=== PATIENT | male | born 1995 | race Caucasian/White ===

== ENCOUNTER 2019-01-15 15:24 | Inpatient (IN) | payer OTHER ==
[~2019-01-15] VITALS: Ht 172.7 cm; Wt 101.6 kg
[2019-01-15 15:36] VITALS: BP 152/94
[2019-01-15] MEDS ORDERED: ONDANSETRON HCL4 M2 PO (15:38)
[2019-01-15] MEDS ORDERED: NAPROSYN500 MG PO (15:38)
[2019-01-15 15:41] LABS: URINE BILIRUBIN NEGATIVE (Negative); URINE BLOOD 3+ (Negative); URINE CLARITY CLEAR; URINE COLOR YELLOW; URINE GLUCOSE-RANDOM NEGATIVE (Negative); URINE KETONES NEGATIVE (Negative); URINE LEUKOCYTES-REFLEX NEGATIVE (Negative); URINE NITRITE-REFLEX NEGATIVE (Negative); URINE PROTEIN TRACE (Negative); URINE SPECIFIC GRAVITY 1.025 (1.005-1.030); URINE UROBILINOGEN 0.2 E.U./dl (0.2-1.0)
[2019-01-15 15:46] LABS: SQUAMOUS 0-3 Few /LPF (0-3)
[2019-01-15 15:47] LABS: BACTERIA-REFLEX 1-9 Few /HPF (None Seen); URINE RBC >20 Many /HPF (0-2); URINE WBC-REFLEX None Seen /HPF (0-5)
[2019-01-15 15:48] LABS: CASTS None Seen /LPF (None Seen); CRYSTALS None Seen /LPF (None Seen); MUCUS >6 Heavy strn/LPF (None Seen)
[2019-01-15 16:01] LABS: ABSOLUTE BASOPHILS 0.1 thou/uL (0.0-0.2); ABSOLUTE EOSINOPHILS 0.2 thou/uL (0.0-0.7); ABSOLUTE LYMPHOCYTES 1.7 thou/uL (0.8-5.3); ABSOLUTE MONOCYTES 0.5 thou/uL (0.0-1.2); ABSOLUTE NEUTROPHILS 4.7 thou/uL (1.6-8.1); BASOPHILS 1.3 %; EOSINOPHILS 2.3 %; HEMATOCRIT 47.4 % (42.0-52.0); LYMPHOCYTES 23.7 %; MCH 29.4 pg (26.0-34.0); MCHC 33.8 g/dL (28.0-37.0); MCV 87.1 fL (80.0-100.0); MONOCYTES 7.3 %; MPV 8.5 fl. (7.2-11.1); NUCLEATED RBCS 0 /100WBC; PLATELET COUNT* 330 thou/uL (150-400); POLYS 65.4 %; RBC 5.44 mil/uL (4.50-6.00); RDW-CV 12.6 % (10.5-14.5); WBC 7.1 thou/uL (4.0-11.0)
[2019-01-15 16:08] LABS: CALCIUM 9.6 mg/dL (8.5-10.1); CREATININE 1.1 mg/dL (0.6-1.3); POTASSIUM 3.8 mmol/L (3.5-5.1)
[2019-01-15 16:12] LABS: ALBUMIN 4.7 g/dL (3.4-5.0); TOTAL BILIRUBIN 0.4 mg/dL (<0.1-1.0); TOTAL PROTEIN 7.5 g/dL (6.4-8.2)
[2019-01-15 16:47] LABS: AMP/METHAMP Negative (Negative); BARBITURATES Negative (Negative); BENZODIAZEPINES Negative (Negative); COCAINE Negative (Negative); METHADONE Negative (Negative); OPIATES Negative (Negative); PCP Negative (Negative); THC Negative (Negative)
[2019-01-15 17:43] VITALS: BP 132/86
[2019-01-15 18:13] VITALS: BP 136/72
[2019-01-15 20:00] VITALS: BP 113/63
[2019-01-16] VITALS: BP 120/64
[2019-01-16 04:29] LABS: ABSOLUTE BASOPHILS 0.1 thou/uL (0.0-0.2); ABSOLUTE EOSINOPHILS 0.2 thou/uL (0.0-0.7); ABSOLUTE LYMPHOCYTES 3.3 thou/uL (0.8-5.3); ABSOLUTE MONOCYTES 0.7 thou/uL (0.0-1.2); ABSOLUTE NEUTROPHILS 3.3 thou/uL (1.6-8.1); BASOPHILS 1.2 %; EOSINOPHILS 2.8 %; HEMATOCRIT 46.1 % (42.0-52.0); LYMPHOCYTES 43.9 %; MCH 28.7 pg (26.0-34.0); MCHC 32.6 g/dL (28.0-37.0); MONOCYTES 8.7 %; MPV 8.6 fl. (7.2-11.1); NUCLEATED RBCS 0 /100WBC; PLATELET COUNT* 310 thou/uL (150-400); POLYS 43.4 %; RBC 5.24 mil/uL (4.50-6.00); RDW-CV 12.8 % (10.5-14.5); WBC 7.5 thou/uL (4.0-11.0)
[2019-01-16 04:45] LABS: CALCIUM 8.8 mg/dL (8.5-10.1); POTASSIUM 4.1 mmol/L (3.5-5.1)
[2019-01-16 07:54] VITALS: BP 142/79
[2019-01-16 09:52] VITALS: BP 142/79
[2019-01-16 18:03] VITALS: BP 146/81
[2019-01-16 20:00] VITALS: BP 124/63
--- NOTE | 2019-01-16 20:54 | OP ---
[address] [address] OPERATIVE REPORT Name: NIKKIE RENAE Room: [address] IN M.R.#: [id number] Admission: 01/15/19 Attend Phys: Faisal Plascencia MD Discharge: Date of : 89 Report #: [id number] THIS REPORT FOR: //name// CC: Faisal Cadena DATE OF SERVICE: 01/16/2019 PREOPERATIVE DIAGNOSES: Left distal ureteral and left renal calculi. POSTOPERATIVE DIAGNOSES: Left distal ureteral and left renal calculi. PROCEDURES PERFORMED: 1. Cystoscopy with left retrograde pyelogram. 2. Left ureteroscopy with laser lithotripsy. 3. Basket stone extraction. 4. Left 6 x 28 double-J ureteral stent placement. SURGEON: Denzel Bsas M.D. ANESTHESIA: General endotracheal. BRIEF HISTORY: The patient is a 23-year-old male who was admitted to [facility] with a 6 x 4 x 8 mm left distal ureteral calculus as well as a 4 mm left renal stone. After discussion of available management options, the patient elected to undergo ureteroscopy with laser lithotripsy, stone retrieval and stent placement. The risks of the procedure including the risks of bleeding, infection, damage to surrounding structures, need for additional procedures, and anesthetic risks were discussed with the patient and he wished to proceed. PROCEDURE IN DETAIL: The risks and benefits of surgery were discussed with the patient and he wished to proceed. Informed consent was obtained and the patient was transferred to the operating room where he was laid supine on the operating room table. After the induction of adequate general endotracheal anesthesia and the administration of appropriate preoperative antibiotics, the patient's legs were placed in a modified dorsal lithotomy position, taking care to pad all pressure points and avoid any hyperextension or hyperflexion of his joints. The patient's genitalia were prepped and draped in the usual sterile fashion. A timeout was then performed to ensure correct patient and procedure. At this time, a 22-[place]an cystoscope sheath with a 30-degree lens was lubricated and advanced under direct vision and irrigation into the anterior urethra. As the cystoscope was advanced across the prostatic urethra due to the patient's body habitus the angle of downward deflection required in order to advance the cystoscope over the bladder neck and into the bladder was so severe [place] [address] OPERATIVE REPORT Name: NIKKIE RENAE Room: [address]#: [id number] Admission: 01/15/19 Attend Phys: Faisal Plascencia MD Discharge: Date of : 97 Report #: [id number] not be advanced across the bladder neck into the bladder. In order to avoid potential trauma to the urethra and the penis, the decision was made to perform flexible cystoscopy. The rigid cystoscope was removed and a flexible cystoscope was advanced under direct vision and irrigation through the urethra and into the bladder. Cystoscopy was then performed under direct vision and irrigation. The patient's ureteral orifices were found to be in their normal anatomic location. Systematic panendoscopy revealed no gross bladder wall pathology. There were no papillary bladder tumors or suspicious mucosal lesions identified. There were no intravesical calculi. At this time, a 5-[place] Pollack catheter was advanced through the flexible cystoscope and was directed into the left ureteral orifice. A left retrograde pyelogram was performed. Contrast could be seen filling the distal ureter a distance of approximately 2-3 cm at which point there was a faint radiopaque filling defect consistent with the left distal ureteral calculus seen on CT imaging. Contrast did progress beyond the stone and filled a mildly ectatic mid and proximal ureter. At this time, a 0.038 ZIPwire was advanced through the Pollack catheter and into the ureter. The wire was advanced beyond the calculus until it was seen to coil within the left collecting system under fluoroscopy. The cystoscope and Pollack catheter were removed. A 10-[place] dual lumen catheter was advanced over the wire and into the left ureteral orifice. In this manner, a second ZIPwire was advanced into the ureter and up into the kidney under fluoroscopic guidance. One wire was clamped to the drape as a safety wire. An 18-[place] Coude tip catheter was then advanced into the bladder and the bladder was drained. The catheter was removed. An attempt was then made at advancing a flexible ureteroscope over the working wire and into the left ureter. There was resistance met at the left ureteral orifice. As such, the flexible ureteroscope was removed and the inner cannula of an / navigator ureteral access sheath was advanced by itself over the wire and just into the left UO under fluoroscopic guidance. In this manner, a very gentle dilation was performed. The 11-[place]an inner cannula was removed and the flexible ureteroscope was then advanced over the wire and into the distal ureter without difficulty. The ureteroscope was advanced to the stone. The wire was removed. A 200 micron laser fiber was then advanced through the flexible ureteroscope and laser lithotripsy was performed on the calculus. The calculus was somewhat soft and fragmented readily. The majority of the stone was able to be dusted with the laser fiber, generating fine debris. There were approximately 2 smaller fragments that were generated with lithotripsy and these were bypassed with the ureteroscope. Under direct vision and pressure flow irrigation, the ureteroscope was able to be easily advanced to the kidney. Renoscopy was performed, meticulously inspecting each of the patient's calices. There was a flat calculus in one of the upper pole calices consistent in size and location to that which was seen on CT imaging. The appearance of the calculus was that of a Chris plaque. A 0 tip nitinol basket was advanced through the ureteroscope and this was able to be removed from the surface of the keshia to which it was adherent. This Chris plaque was then withdrawn and was placed into the bladder. An attempt was made at readvancing [place] [address] OPERATIVE REPORT Name: NIKKIE RENAE Room: [address] IN [facility].#: [id number] Admission: 01/15/19 Attend Phys: Faisal Plascencia MD Discharge: Date of : 97 Report #: [id number] back across left ureteral orifice free-hand; however, due to the angulation of the ureteral orifice from the safety wire, this could not be accomplished. The ureteroscope was then removed and the 10-[place] dual lumen catheter was advanced over the safety wire and into the left UO under fluoroscopic guidance. The second wire was replaced under fluoroscopic guidance and the 10-[place] dual lumen catheter was removed. The flexible ureteroscope was then advanced over the working wire into the distal ureter without difficulty. Ureteroscopy was then performed from the proximal ureter to the UVJ. There were 2 small calculus fragments remaining. These were grasped and removed together with a 0 tip nitinol basket. These were passed off the table for pathologic analysis. Having cleared the distal ureter of all basketable stone fragments, the 10-[place] dual lumen catheter was readvanced over the safety wire. A left retrograde pyelogram was repeated by injecting contrast through the dual lumen catheter. This demonstrated patency and integrity of the ureter and collecting system and delineated the left collecting system for stent placement. The left collecting system was relatively decompressed. A 10-[place] dual lumen catheter was removed and a 6 x 28 double-J ureteral stent was advanced over the safety wire and into position using a metal tipped pusher. The wire was withdrawn, deploying the stent. Because of decompressed nature of the left collecting system, the stent was seen to take on an S-shaped configuration with the proximal end in the upper pole keshia. There was a good coil of the stent within the bladder under fluoroscopy. The 18 Coude catheter was then readvanced into the bladder and the bladder was drained. The catheter was removed. The patient's urethra was anesthetized with 2% lidocaine jelly and a B and O suppository was placed per rectum. The patient was then returned to a supine position, awakened from anesthesia, and transferred to the postoperative care unit in stable condition. The patient tolerated the procedure well. COMPLICATIONS: None. ESTIMATED BLOOD LOSS: Minimal. INTRAVENOUS FLUIDS: Crystalloid. DRAINS: Left 6 x 28 double-J ureteral stent. SPECIMENS: Left ureteral calculus fragments. FINDINGS: 1. Inability to perform rigid cystoscopy due to patient's body habitus. 2. No gross bladder wall pathology. No papillary bladder tumors or suspicious mucosal lesions identified. 3. Left retrograde pyelogram demonstrating a faint radiopaque filling defect of the left distal ureter consistent with the calculus previously observed on CT imaging. 4. Left flexible ureteroscopy demonstrating a left distal ureteral calculus, [address] [address] OPERATIVE REPORT Name: NIKKIE RENAE Room: [address] [place] [facility].#: [id number] Admission: 01/15/19 Attend Phys: Faisal Plascencia MD Discharge: Date of : 97 Report #: [id number] fragmented with laser lithotripsy and removed. 5. Left renoscopy demonstrating an upper pole calyceal Chris plaque, grasped and removed. 6. Left 6 x 28 double-J ureteral stent in good position by fluoroscopy. <ELECTRONICALLY SIGNED> By: Denzel Bass MD 01/16/19 2054 [id number] Bass MD /nt
[2019-01-17] VITALS: BP 135/68
[2019-01-17 04:00] VITALS: BP 121/69
[2019-01-17 07:42] VITALS: BP 117/56
[2019-01-17 09:19] VITALS: BP 117/56
[2019-01-17] MEDS ORDERED: LEVSIN-SL0.125 MG PO (09:34)
[2019-01-17] MEDS ORDERED: PHENAZOPYRIDIN200 M2 PO (09:37)
[2019-01-17] MEDS ORDERED: KEFLEX500 M1 PO (09:38)
== END 2019-01-17 10:05 | disposition home or self-care (01) | DRG 661 ==
LOC: M.ERS 15:24 → M.TBA-ER 16:38 → M.ORTHSURG 16:38
PROVIDERS: Nurse Practitioner Family; ADMIT Internal Medicine
PROC: BT1F1ZZ Fluoroscopy of Left Kidney, Ureter and Bladder using Low Osmolar Contrast (ICD-10-PCS; principal; 2019-01-16)
PROC: 0T778DZ Dilation of Left Ureter with Intraluminal Device, Via Natural or Artificial Opening Endoscopic (ICD-10-PCS; principal; 2019-01-16)
PROC: 0TC78ZZ Extirpation of Matter from Left Ureter, Via Natural or Artificial Opening Endoscopic (ICD-10-PCS; principal; 2019-01-16)
DX: N13.2 Hydronephrosis with renal and ureteral calculous obstruction (principal); N13.9 Obstructive and reflux uropathy, unspecified; E86.0 Dehydration; Z79.899 Other long term (current) drug therapy